=== PATIENT | male | born 1990 | race Caucasian/White ===

== ENCOUNTER 2017-05-01 15:18 | Emergency (ER) | payer BC, OTHER ==
[2017-05-01] MEDS: HYDROCODONE/APAP (5/325) TAB PO (17:28)
[2017-05-01] MEDS: AMPICILLIN/SULBAC 3 GM INJ IM (19:48)
== END 2017-05-01 20:10 | disposition home or self-care (01) ==
LOC: E/R 15:18 → FTE 20:10
DX: H70.91 Unspecified mastoiditis, right ear (principal)
CPT/HCPCS: 70480; 96372; 99285-25

== ENCOUNTER 2018-09-03 16:32 | Emergency (ER) | payer SELFPAY, BC ==
[2018-09-03 19:39] LABS: URINE BLOOD (Dip) POC Negative (NEGATIVE); URINE GLUCOSE (Dip) POC Negative (NEGATIVE); URINE KETONES (Dip) POC Negative (NEGATIVE); URINE LEUKOCYTE EST (Dip) POC Negative (NEGATIVE); URINE NITRITE (Dip) POC Negative (NEGATIVE); URINE TOTAL PROTEIN POC Negative (NEGATIVE)
== END 2018-09-03 20:11 | disposition home or self-care (01) ==
LOC: FTE 16:32
DX: K64.8 Other hemorrhoids (principal)
CPT/HCPCS: 81003; 99284